=== PATIENT | female | born 1950 | race Caucasian/White ===

== ENCOUNTER 2023-04-07 18:19 | Emergency (ER) | payer MEDICAID, OTHER ==
[~2023-04-07] VITALS: Ht 152.4 cm; Wt 52.0 kg
[~2023-04-07 18:19] MED LIST: AMLO5TAB88 PO; ATOR20TA65 PO; CARV6.2548 MT; CLOP75TA33 PO
[2023-04-07 18:28] VITALS: BP 131/74; PULSE 77; RESP 20; TEMP 98.3; O2SAT 100
[2023-04-07 19:18] LABS: CLARITY URINE CLEAR (CLEAR); COLOR URINE YELLOW (YELLOW); GLUCOSE URINE NEGATIVE (NEGATIVE); KETONES URINE NEGATIVE (NEGATIVE); LEUKOCYTE ESTERASE URINE NEGATIVE (NEGATIVE); NITRITE URINE NEGATIVE (NEGATIVE); OCCULT BLOOD URINE NEGATIVE (NEGATIVE); PH URINE 5.5 (4.5-8.0); PROTEIN URINE 2+ (NEGATIVE); SPECIFIC GRAVITY URINE 1.006 (1.005-1.030); UROBILINOGEN URINE 0.2 E.U./dL (0.2-1.0)
[2023-04-07 19:35] LABS: BACTERIA URINE TRACE; SQUAMOUS EPITHELIAL CELL URINE 1+ /lpf (RARE/1+)
[2023-04-07 19:50] LABS: BASOPHILS % 0.5 % (0.0-2.0); EOSINOPHILS % 1.1 % (0.0-5.0); HEMATOCRIT. 31.1 % (36.0-48.0); HEMOGLOBIN. 9.9 g/dL (12.0-16.0); LYMPHOCYTES % 28.7 % (20.0-50.0); MEAN CORPUSCULAR HEMOGLOBIN 25.6 pg (28.0-32.0); MEAN CORPUSCULAR HGB CONC 31.7 g/dL (31.0-37.0); MEAN CORPUSCULAR VOLUME 80.8 fL (81.0-99.0); MONOCYTES % 6.6 % (2.0-8.0); NEUTROPHILS % 63.1 % (40.0-76.0); PLATELET 214 x1000/uL (130-400); RED BLOOD CELL COUNT 3.85 mill/uL (4.2-5.4); RED CELL DISTRIBUTION WIDTH 14.3 % (11.6-14.6); WHITE BLOOD COUNT 6.4 x1000/uL (4.5-11.0)
[2023-04-07 20:03] LABS: ALANINE AMINOTRANSFERASE 15 IU/L (10-49); ASPARTATE AMINOTRANSFERASE 22 IU/L (<34); BILIRUBIN TOTAL 0.4 mg/dL (0.1-1.0); CALCIUM 8.9 mg/dL (8.7-10.4); CARBON DIOXIDE 22 mEq/L (21-32); CHLORIDE 104 mEq/L (98-107); CREATININE 1.4 mg/dL (0.6-1.0); GLUCOSE 201 mg/dL (70-105); PROTEIN TOTAL 7.4 g/dL (6.0-8.3); SODIUM 136 mEq/L (136-145); UREA NITROGEN BLOOD 34 mg/dL (9-23)
== END 2023-04-07 21:39 | disposition home or self-care (01) ==
LOC: ER 18:19
DX: N17.9 Acute kidney failure, unspecified (principal); E11.9 Type 2 diabetes mellitus without complications; E78.00 Pure hypercholesterolemia, unspecified; I10 Essential (primary) hypertension; I25.2 Old myocardial infarction
CPT/HCPCS: 36415; 80053; 81003; 85025; 93005; 99284

== ENCOUNTER 2024-04-04 16:28 | Emergency (ER) | payer MEDICAID ==
[~2024-04-04] VITALS: Ht 157.5 cm; Wt 52.0 kg
[~2024-04-04 16:28] MED LIST changes: -AMLO5TAB88 PO; +ASPI-1497 MT; -ATOR20TA65 PO; -CARV6.2548 MT; +CLOP-31 PO; -CLOP75TA33 PO; +FURO40TA5 PO; +LIP40 PO; +SPIR25TA6 PO
[2024-04-04 16:39] VITALS: O2SAT 99
[2024-04-04 16:45] VITALS: BP 175/48; PULSE 82; RESP 16; O2SAT 100
[2024-04-04 21:48] VITALS: TEMP 98.7
[2024-04-04] MEDS: ACETAMINOPHEN 500MG TABLET PO ONE (21:48)
[2024-04-04 23:19] LABS: BASOPHILS % 0.7 % (0.0-2.0); EOSINOPHILS % 1.5 % (0.0-5.0); HEMATOCRIT. 35.9 % (36.0-48.0); HEMOGLOBIN. 11.7 g/dL (12.0-16.0); LYMPHOCYTES % 25.3 % (20.0-50.0); MEAN CORPUSCULAR HEMOGLOBIN 26.5 pg (28.0-32.0); MEAN CORPUSCULAR HGB CONC 32.7 g/dL (31.0-37.0); MONOCYTES % 7.8 % (2.0-8.0); NEUTROPHILS % 64.7 % (40.0-76.0); PLATELET 222 x1000/uL (130-400); RED BLOOD CELL COUNT 4.43 mill/uL (4.2-5.4); RED CELL DISTRIBUTION WIDTH 12.7 % (11.6-14.6); WHITE BLOOD COUNT 7.3 x1000/uL (4.5-11.0)
[2024-04-04 23:24] LABS: CHLORIDE 104 mEq/L (98-107); SODIUM 137 mEq/L (136-145)
[2024-04-04 23:25] LABS: CARBON DIOXIDE 22 mEq/L (21-32)
[2024-04-04 23:26] LABS: CALCIUM 10.1 mg/dL (8.7-10.4)
[2024-04-04 23:30] LABS: GLUCOSE 184 mg/dL (70-105); UREA NITROGEN BLOOD 48 mg/dL (9-23)
[2024-04-04 23:32] LABS: ALANINE AMINOTRANSFERASE 46 IU/L (10-49); ALBUMIN 4.8 g/dL (3.2-4.8); ASPARTATE AMINOTRANSFERASE 46 IU/L (<34); BILIRUBIN TOTAL 0.3 mg/dL (0.1-1.0); PROTEIN TOTAL 7.9 g/dL (6.0-8.3)
[2024-04-04 23:43] LABS: CREATININE 2.4 mg/dL (0.6-1.0)
[2024-04-05] MEDS ORDERED: ACET-2708 MT (00:02)
== END 2024-04-05 00:31 | disposition home or self-care (01) ==
LOC: ER 16:28
DX: N28.9 Disorder of kidney and ureter, unspecified (principal); E78.00 Pure hypercholesterolemia, unspecified; E11.9 Type 2 diabetes mellitus without complications; I25.2 Old myocardial infarction; I10 Essential (primary) hypertension; Z88.8 Allergy status to other drugs, medicaments and biological substances; Z79.899 Other long term (current) drug therapy; Z98.890 Other specified postprocedural states
CPT/HCPCS: 36415; 73700; 80053; 85025; 99284

== ENCOUNTER 2024-06-06 19:31 | Inpatient (IN) | payer MEDICAID ==
[~2024-06-06] VITALS: Ht 144.8 cm; Wt 65.8 kg
[~2024-06-06 19:31] MED LIST changes: +ACET-2708 MT
[2024-06-06] MEDS: MORPHINE SULFATE 4 MG/ML INJ (FOR IV/IM USE) IV STA (20:46)
[2024-06-06] MEDS: CEFTRIAXONE 1GM/50ML 50 ML IV ONE (20:46)
[2024-06-06 20:55] LABS: HEMATOCRIT. 26.7 % (36.0-48.0); HEMOGLOBIN. 8.7 g/dL (12.0-16.0); MEAN CORPUSCULAR HGB CONC 32.6 g/dL (31.0-37.0); MEAN CORPUSCULAR VOLUME 79.6 fL (81.0-99.0); MEAN PLATELET VOLUME 8.6 fl (7.4-10.4); PLATELET 292 x1000/uL (130-400); RED BLOOD CELL COUNT 3.36 mill/uL (4.2-5.4); RED CELL DISTRIBUTION WIDTH 12.9 % (11.6-14.6); WHITE BLOOD COUNT 12.7 x1000/uL (4.5-11.0)
[2024-06-06 20:58] LABS: DIFFERENTIAL COMMENT 1
[2024-06-06 21:00] LABS: POTASSIUM 4.7 mEq/L (3.5-5.1)
[2024-06-06 21:02] LABS: CALCIUM 9.2 mg/dL (8.7-10.4)
[2024-06-06 21:07] LABS: CREATININE 1.6 mg/dL (0.6-1.0)
[2024-06-06 22:52] LABS: MICROCYTOSIS 1+; PLATELET ESTIMATE NORMAL
[2024-06-07 10:00] VITALS: BP 131/45; PULSE 88; RESP 18; TEMP 37.4
[2024-06-07] MEDS ORDERED: NALOXONE HCL 0.4MG/ML VIAL IV PRN (11:15)
[2024-06-07] MEDS: BLOOD SUGAR DIAGNOSTIC STRIP TEST SCH (11:40)
[2024-06-07 12:00] VITALS: BP 131/45; PULSE 88; RESP 18; TEMP 37.3; O2SAT 96
[2024-06-07] MEDS: INSULIN LISPRO 100 UNITS/ML SUBCUT SCH (12:10)
[2024-06-07] MEDS: VANCOMYCIN 1GM/200ML PMX (BAXTER) IV NR (12:50)
[2024-06-07] MEDS: OXYCODONE HCL/ACETAMINOPHEN 5/325MG TABLET PO PRN (13:09)
[2024-06-07 16:00] VITALS: BP 126/47; PULSE 72; RESP 17; TEMP 37.6; O2SAT 98
[2024-06-07 16:39] LABS: CLARITY URINE CLEAR (CLEAR); COLOR URINE YELLOW (YELLOW); GLUCOSE URINE 3+ (NEGATIVE); KETONES URINE TRACE (NEGATIVE); LEUKOCYTE ESTERASE URINE NEGATIVE (NEGATIVE); NITRITE URINE NEGATIVE (NEGATIVE); OCCULT BLOOD URINE NEGATIVE (NEGATIVE); PH URINE 5.5 (4.5-8.0); PROTEIN URINE 1+ (NEGATIVE); UROBILINOGEN URINE 0.2 E.U./dL (0.2-1.0)
[2024-06-07] MEDS: DIPHENHYDRAMINE 25MG CAPSULE PO PRN (17:51)
[2024-06-07 18:22] LABS: BACTERIA URINE TRACE; RBC URINE 0-2 /hpf (0-2); SQUAMOUS EPITHELIAL CELL URINE FEW /lpf (RARE/1+); WBC URINE 0-2 /hpf (0-2)
[2024-06-07 20:00] VITALS: BP 151/60; PULSE 83; RESP 16; TEMP 36.2; O2SAT 97
[2024-06-07] MEDS: CEFTRIAXONE 1GM/50ML 50 ML IV SCH (21:23)
[2024-06-07] MEDS: MORPHINE SULFATE 2 MG/ML INJ (NOT FOR IM USE) IV NR (21:50)
[2024-06-08] VITALS: BP 140/53; PULSE 83; RESP 16; TEMP 36.4; O2SAT 95
[2024-06-08 04:00] VITALS: BP 117/56; PULSE 88; RESP 16; TEMP 36.3; O2SAT 98
[2024-06-08 07:58] LABS: BASOPHILS % 0.4 % (0.0-2.0); EOSINOPHILS % 0.2 % (0.0-5.0); HEMATOCRIT. 23.9 % (36.0-48.0); HEMOGLOBIN. 7.7 g/dL (12.0-16.0); LYMPHOCYTES % 7.8 % (20.0-50.0); MEAN CORPUSCULAR HEMOGLOBIN 25.9 pg (28.0-32.0); MEAN CORPUSCULAR HGB CONC 32.3 g/dL (31.0-37.0); MEAN CORPUSCULAR VOLUME 80.3 fL (81.0-99.0); MONOCYTES % 6.4 % (2.0-8.0); NEUTROPHILS % 85.2 % (40.0-76.0); PLATELET 253 x1000/uL (130-400); RED BLOOD CELL COUNT 2.97 mill/uL (4.2-5.4); RED CELL DISTRIBUTION WIDTH 12.8 % (11.6-14.6); WHITE BLOOD COUNT 10.9 x1000/uL (4.5-11.0)
[2024-06-08 08:00] VITALS: BP 107/56; PULSE 88; RESP 19; TEMP 36.8; O2SAT 98
[2024-06-08 08:03] LABS: POTASSIUM 5.2 mEq/L (3.5-5.1)
[2024-06-08 08:05] LABS: CALCIUM 8.7 mg/dL (8.7-10.4)
[2024-06-08 08:09] LABS: CREATININE 1.9 mg/dL (0.6-1.0)
[2024-06-08] MEDS: VANCOMYCIN 500MG/100ML IV SCH (10:41)
[2024-06-08 12:00] VITALS: BP 130/54; PULSE 93; RESP 19; TEMP 38.2; O2SAT 97
[2024-06-09 02:31] VITALS: BP 98/67; PULSE 88; RESP 18; TEMP 36.2; O2SAT 90
[2024-06-09 04:00] VITALS: BP 98/80; PULSE 73; RESP 17; TEMP 36.2; O2SAT 98
[2024-06-09 08:00] VITALS: BP 100/57; PULSE 96; RESP 16; TEMP 37.1; O2SAT 95
[2024-06-09 08:15] LABS: POTASSIUM 5.2 mEq/L (3.5-5.1)
[2024-06-09 08:16] LABS: CALCIUM 8.3 mg/dL (8.7-10.4)
[2024-06-09 08:21] LABS: CREATININE 2.1 mg/dL (0.6-1.0)
[2024-06-09] MEDS: SODIUM CHLORIDE 0.9% 1,000 ML IV SCH (11:11)
[2024-06-09 12:00] VITALS: BP 132/57; PULSE 80; RESP 18; TEMP 37.1; O2SAT 100
[2024-06-09 16:00] VITALS: BP 113/50; PULSE 77; RESP 18; TEMP 36.4; O2SAT 100
[2024-06-09 20:00] VITALS: BP 126/65; RESP 18; TEMP 36.6; O2SAT 95
[2024-06-09] MEDS: INSULIN GLARGINE 100 UNITS/ML SUBCUT SCH (21:57)
[2024-06-10 06:29] VITALS: BP 140/30; PULSE 77; RESP 16; TEMP 36.4
[2024-06-10 07:08] LABS: BASOPHILS % 0.2 % (0.0-2.0); EOSINOPHILS % 0.6 % (0.0-5.0); HEMOGLOBIN. 7.1 g/dL (12.0-16.0); LYMPHOCYTES % 12.4 % (20.0-50.0); MEAN CORPUSCULAR HGB CONC 32.1 g/dL (31.0-37.0); MEAN PLATELET VOLUME 8.7 fl (7.4-10.4); MONOCYTES % 10.4 % (2.0-8.0); NEUTROPHILS % 76.4 % (40.0-76.0); PLATELET 242 x1000/uL (130-400); RED BLOOD CELL COUNT 2.72 mill/uL (4.2-5.4); RED CELL DISTRIBUTION WIDTH 12.9 % (11.6-14.6); WHITE BLOOD COUNT 9.5 x1000/uL (4.5-11.0)
[2024-06-10 07:24] LABS: POTASSIUM 5.2 mEq/L (3.5-5.1)
[2024-06-10 07:26] LABS: CALCIUM 8.4 mg/dL (8.7-10.4)
[2024-06-10 07:30] LABS: CREATININE 1.8 mg/dL (0.6-1.0)
[2024-06-10 08:00] VITALS: BP 130/59; PULSE 90; RESP 16; TEMP 36.6; O2SAT 96
[2024-06-10 12:00] VITALS: BP 143/62; PULSE 104; RESP 18; TEMP 36.3; O2SAT 95
[2024-06-10] MEDS: ONDANSETRON HCL 4MG/2ML INJ IV PRN (12:32)
[2024-06-10 16:00] VITALS: BP 125/57; PULSE 88; RESP 16; TEMP 36.5; O2SAT 98
[2024-06-10 20:00] VITALS: BP 126/65; PULSE 73; RESP 18; TEMP 36.6; O2SAT 95
[2024-06-10] MEDS: ACETAMINOPHEN 325MG TABLET PO PRN (23:57)
[2024-06-11] VITALS: BP 118/66; PULSE 75; RESP 16; TEMP 36.7; O2SAT 96
[2024-06-11 04:00] VITALS: BP 128/68; PULSE 75; RESP 18; TEMP 36.8; O2SAT 96
[2024-06-11 06:34] LABS: POTASSIUM 4.6 mEq/L (3.5-5.1)
[2024-06-11 06:36] LABS: CALCIUM 8.3 mg/dL (8.7-10.4)
[2024-06-11 06:40] LABS: CREATININE 1.5 mg/dL (0.6-1.0)
[2024-06-11 06:54] LABS: BASOPHILS % 0.4 % (0.0-2.0); DIFFERENTIAL COMMENT 0; EOSINOPHILS % 0.4 % (0.0-5.0); HEMOGLOBIN. 7.4 g/dL (12.0-16.0); LYMPHOCYTES % 12.7 % (20.0-50.0); MEAN CORPUSCULAR HEMOGLOBIN 25.5 pg (28.0-32.0); MEAN CORPUSCULAR VOLUME 79.8 fL (81.0-99.0); MEAN PLATELET VOLUME 8.8 fl (7.4-10.4); MONOCYTES % 10.6 % (2.0-8.0); NEUTROPHILS % 75.9 % (40.0-76.0); PLATELET 245 x1000/uL (130-400); RED BLOOD CELL COUNT 2.88 mill/uL (4.2-5.4); RED CELL DISTRIBUTION WIDTH 12.8 % (11.6-14.6); WHITE BLOOD COUNT 7.7 x1000/uL (4.5-11.0)
[2024-06-11 08:00] VITALS: BP 129/74; PULSE 73; RESP 18; TEMP 36.2; O2SAT 95
[2024-06-11 12:00] VITALS: BP 135/64; PULSE 79; RESP 16; TEMP 36.3; O2SAT 95
[2024-06-11 16:00] VITALS: BP 129/54; PULSE 73; RESP 16; TEMP 36.4; O2SAT 95
[2024-06-11 20:00] VITALS: BP 131/62; PULSE 76; RESP 18; TEMP 36.5; O2SAT 90
[2024-06-12] VITALS (7 sets, daily range): BP systolic 117–138; BP diastolic 53–60; PULSE 62–94; RESP 16–20; TEMP 36.3–36.7; O2SAT 65–96
[2024-06-12 06:48] LABS: CALCIUM 8.4 mg/dL (8.7-10.4); POTASSIUM 4.8 mEq/L (3.5-5.1)
[2024-06-12] MEDS: DEXTROSE 50% WATER 50ML SYRINGE IV PRN (06:50)
[2024-06-12 06:54] LABS: CREATININE 1.3 mg/dL (0.6-1.0)
[2024-06-12] MEDS ORDERED: MEROPENEM 1G/100ML IV SCH (15:30)
== END 2024-06-12 17:03 | disposition home health service (06) | DRG 720 ==
LOC: ER 19:31 → EDBEDREQ 20:25 → 7EST 21:28 → EDBEDREQTM 21:34 → EDBEDREQ 21:34
PROVIDERS: ADMIT Internal Medicine; ATTEND Internal Medicine
DX: A41.9 Sepsis, unspecified organism (principal); N17.0 Acute kidney failure with tubular necrosis; C85.95 Non-Hodgkin lymphoma, unspecified, lymph nodes of inguinal region and lower limb; G89.3 Neoplasm related pain (acute) (chronic); I10 Essential (primary) hypertension; E11.9 Type 2 diabetes mellitus without complications; S31.103A Unspecified open wound of abdominal wall, right lower quadrant without penetration into peritoneal cavity, initial encounter; Z88.8 Allergy status to other drugs, medicaments and biological substances; Z79.82 Long term (current) use of aspirin; Z79.899 Other long term (current) drug therapy; X58.XXXA Exposure to other specified factors, initial encounter; Y93.89 Activity, other specified; Y92.89 Other specified places as the place of occurrence of the external cause; Y99.8 Other external cause status
CPT/HCPCS: 36415; 80048; 80202; 81003; 82962; 85025; 87070; 87077; 87186; 93970; 97162; 99285; A4606; C1893; J0696; J1815; J2185; J2270; J2405; J3370; J7030; Q0163